=== PATIENT | female | born 1930 | race Caucasian/White ===

== ENCOUNTER 2017-03-18 17:26 | Emergency (ER) | payer MEDICARE, OTHER ==
[2017-03-18 18:55] LABS: #Eosinphils 0.1 thou/uL (0.0-0.7); #Lymphocytes 2.9 thou/uL (1.20-3.40); #Monocytes 0.7 thou/uL (0.11-0.59); #Neutrophils 3.6 thou/uL (1.40-6.50); %Basophils 0.4 % (0.0-1.0); %Monocytes 9.4 % (0.0-10.0); Hematocrit 41.1 % (36.0-47.0); Mean Platelet Volume 7.4 fL (7.4-10.4); Red Blood Cell (RBC) Count 4.34 mill/uL (4.20-5.40); White Blood Cell (WBC) Count 7.4 thou/uL (4.8-10.8)
[2017-03-18 18:59] LABS: PTT 36.2 SEC (22.9-36.1); Prothrombin Time 13.7 SEC (12.0-14.7)
--- NOTE | 2017-03-18 19:07 | CT ---
CT BRAIN WITHOUT CONTRAST: Date: 03/18/17 HISTORY: Headache. FINDINGS: Comparison made with exam of 02/15/13. Changes of mild cortical atrophy and chronic small vessel ischemic disease are again seen. The ventr icular size is stable and the basilar cisterns are patent. No evidence of acute infarct, hemorrhage, midline shift, or abnormal extra-axial fluid collections are seen. The bony calvarium is intact. Th e visualized paranasal sinuses and mastoid air cells are well aerated. IMPRESSION: No CT evidence of acute intracranial process. POS: [facility]
[2017-03-18 19:17] LABS: ALT (SGPT) 22 U/L (8-55); AST (SGOT) 19 U/L (5-34); Alkaline Phosphatase 63 U/L (40-150); Anion Gap 14 mmol/L (10-20); BUN (Urea Nitrogen) 26 mg/dL (9.8-20.1); Bilirubin, Total 0.4 mg/dL (0.2-1.2); Calc. Creatinine Clearance 0 mL/min (70-130); Calcium 9.8 mg/dL (7.8-10.44); Carbon Dioxide 27 mmol/L (23-31); Chloride 99 mmol/L (98-107); Estimated GFR-MDRD 33; Globulin 3.7 g/dL (2.4-3.5); Protein, Total 8.1 g/dL (6.0-8.3)
== END 2017-03-18 22:19 | disposition home or self-care (01) ==
LOC: ERS 17:26
DX: R51 Headache (principal); E78.5 Hyperlipidemia, unspecified; I12.9 Hypertensive chronic kidney disease with stage 1 through stage 4 chronic kidney disease, or unspecified chronic kidney disease; N18.9 Chronic kidney disease, unspecified; I25.10 Atherosclerotic heart disease of native coronary artery without angina pectoris; Z87.891 Personal history of nicotine dependence
CPT/HCPCS: 36415; 70450; 80053; 85025; 85610; 85652; 85730; 86140

== ENCOUNTER 2017-12-18 20:43 | Observation (INO) | payer MEDICARE, OTHER ==
--- NOTE | 2017-12-18 21:39 | RAD ---
TWO VIEW CHEST: 12/18/17 HISTORY: Chest pain. Lung sepulveda appear clear. Heart and mediastinum unremarkable. vascular markings are normal. IMPRESSION: Unremarkable chest. POS: [facility]
[2017-12-18 21:55] LABS: #Eosinphils 0.1 thou/uL (0.0-0.7); #Lymphocytes 2.8 thou/uL (1.20-3.40); #Monocytes 0.7 thou/uL (0.11-0.59); #Neutrophils 3.9 thou/uL (1.40-6.50); %Basophils 0.5 % (0.0-1.0); %Eosinophils 1.8 % (0.0-10.0); %Lymphocytes 36.7 % (21.0-51.0); %Monocytes 9.4 % (0.0-10.0); %Neutrophils 51.6 % (42.0-75.0); Hemoglobin 13.4 g/dL (12.0-16.0); Mean Corpuscular HGB CONC 34.7 g/dL (32.0-36.0); Mean Corpuscular Hemoglobin 31.5 pg (27.0-31.0); Mean Corpuscular Volume 90.8 fL (78.0-98.0); Mean Platelet Volume 7.2 fL (7.4-10.4); Platelet Count 201 thou/uL (130-400); Red Blood Cell (RBC) Count 4.24 mill/uL (4.20-5.40); White Blood Cell (WBC) Count 7.5 thou/uL (4.8-10.8)
[2017-12-18 21:56] LABS: CKMB 2.7 ng/mL (0-6.6); Troponin I Less than 0.010 ng/mL (< 0.028)
[2017-12-18 22:04] LABS: ALT (SGPT) 20 U/L (8-55); AST (SGOT) 35 U/L (5-34); Albumin 4.4 g/dL (3.4-4.8); Alkaline Phosphatase 50 U/L (40-150); Anion Gap 19 mmol/L (10-20); BUN (Urea Nitrogen) 26 mg/dL (9.8-20.1); Bilirubin, Total 0.4 mg/dL (0.2-1.2); CK (CPK) 125 U/L (29-168); Calc. Creatinine Clearance 0 mL/min (70-130); Calcium 9.4 mg/dL (7.8-10.44); Carbon Dioxide 23 mmol/L (23-31); Chloride 98 mmol/L (98-107); Estimated GFR-MDRD 33; Globulin 3.5 g/dL (2.4-3.5); Glucose 87 mg/dL (83-110); Potassium 5.5 mmol/L (3.5-5.1); Protein, Total 7.9 g/dL (6.0-8.3); Sodium 134 mmol/L (136-145)
[2017-12-19] MEDS ORDERED: Nitroglycerin 0.4 MG TAB (25 Tab Bottle) SL PRN (01:06)
[2017-12-19 01:14] LABS: Troponin I 0.011 ng/mL (< 0.028)
[2017-12-19 01:41] VITALS: BMI 30.2
[2017-12-19] MEDS ORDERED: Acetaminophen 325 MG TAB PO PRN (02:39)
[2017-12-19] MEDS ORDERED: Ondansetron HCl/PF 4 MG/2 ML Vial IVP PRN (02:39)
[2017-12-19 03:23] LABS: #Eosinphils 0.1 thou/uL (0.0-0.7); #Lymphocytes 2.8 thou/uL (1.20-3.40); #Monocytes 0.6 thou/uL (0.11-0.59); #Neutrophils 3.2 thou/uL (1.40-6.50); %Basophils 0.2 % (0.0-1.0); %Eosinophils 2.1 % (0.0-10.0); %Lymphocytes 41.7 % (21.0-51.0); %Monocytes 9.2 % (0.0-10.0); %Neutrophils 46.8 % (42.0-75.0); Hemoglobin 12.1 g/dL (12.0-16.0); Mean Corpuscular Hemoglobin 31.1 pg (27.0-31.0); Mean Corpuscular Volume 91.3 fL (78.0-98.0); Mean Platelet Volume 7.9 fL (7.4-10.4); Platelet Count 181 thou/uL (130-400); Red Blood Cell (RBC) Count 3.89 mill/uL (4.20-5.40); White Blood Cell (WBC) Count 6.8 thou/uL (4.8-10.8)
[2017-12-19 03:41] LABS: Anion Gap 13 mmol/L (10-20); BUN (Urea Nitrogen) 22 mg/dL (9.8-20.1); Calc. Creatinine Clearance 39 mL/min (70-130); Calcium 9.2 mg/dL (7.8-10.44); Carbon Dioxide 25 mmol/L (23-31); Chloride 103 mmol/L (98-107); Estimated GFR-MDRD 38; Glucose 135 mg/dL (83-110); Potassium 3.9 mmol/L (3.5-5.1); Sodium 137 mmol/L (136-145)
[2017-12-19] MEDS ORDERED: Aspirin 325 MG TAB PO SCH (09:00)
[2017-12-19] MEDS ORDERED: Enoxaparin Sodium 30 MG/0.3 ML SYRINGE SC SCH (09:00)
[2017-12-19] MEDS ORDERED: ADENOSINE 60 MG/20 ML VIAL ONE (10:40)
[2017-12-19 13:46] VITALS: TEMP 97.6
--- NOTE | 2017-12-19 15:31 | NM ---
MYOCARDIAL PERFUSION EVALUATION: INDICATION: Chest pain. RADIOPHARMACEUTICAL: 31.6 mCi Technetium 99m sestamibi IV with stress and 10.0 mCi Technetium 99m sestamibi IV with rest. FINDINGS: When comparing the rest and stress images, no reversible myocardial perfusion defect is evident. Wal l motion and thickening was within normal limits on the gated images. The estimated LVEF is 80%. IMPRESSION: No definite scintigraphic evidence of reversible myocardial ischemia. POS: [facility]
[2017-12-19 15:58] VITALS: BP 144/64
[2017-12-19] MEDS ORDERED: Clopidogrel Bisulfate 300 MG TAB PO SCH (17:45)
--- NOTE | 2017-12-19 20:17 | PRG ---
DATE OF SERVICE: 12/19/2017 PRIMARY KILN DOOR REPAIRER: Dr. Weaver. SUBJECTIVE: Ms. Orta is an 87-year-old woman, who presented with left upper chest pain. She ini tially said that she had had bypass surgery, but there does not appear to be any evidence that she anderson s had bypass surgery. She may have had abdominal aortic surgery many years ago. TECHNIQUE: The patient was brought here. Her stress test showed no ischemia and she is pain free. PHYSICAL EXAMINATION: VITAL SIGNS: Blood pressure 147/65, pulse 70, regular. LUNGS: Clear. CARDIAC: Normal S1, normal S2. ABDOMEN: Soft, nontender. EXTREMITIES: There is no edema. LABORATORY DATA: All the cardiac enzymes were normal. Creatinine is 1.3. Potassium is 3.9, it was 5.5 on admission. ASSESSMENT: 1. Chest pain. 2. Negative stress test. PLAN: 1. She will be released home to follow up with Dr. Weaver. 2. Plavix for 1 month only. She was given 300 mg today, then 75 mg a day. 3. If she has recurrent pain, she should be reevaluated. She will follow up closely with Dr. Alda orozco as an outpatient.
--- NOTE | 2017-12-20 00:42 | SS ---
PRIMARY CARE PROVIDER: Dr. William Delaney. DATE OF ADMISSION: 12/19/2017 DATE OF DISCHARGE: 12/19/2017 CHIEF COMPLAINT: Chest pain. HISTORY OF PRESENT ILLNESS: Ms. Orta is a pleasant 87-year-old lady who was admitted to [facility] on observation status on 12/19/2017. She has a history of coronary artery disease. Around 9:00 a.m. yesterday, she developed left-sided c hest pain which was sharp, initially over the lower chest subsequent to her upper chest, not accompan ied by nausea, lightheadedness or shortness of breath. She took a nitroglycerin in the morning as we ll as in the afternoon without relief. Her nitroglycerin is reportedly 6 years old. She came to the emergency room because of ongoing chest pain. She describes it as on and off, but it was not associated with any aggravating or relieving factors. It resolved overnight. REVIEW OF SYSTEMS: All other systems reviewed and found to be negative. PAST MEDICAL HISTORY: Hypertension, renal artery stenosis, status post angioplasty, coronary artery disease, ischemic colitis. SOCIAL HISTORY: Patient denies tobacco use, alcohol use or recreational drug use. FAMILY HISTORY: Significant for heart disease and asthma in her father. ALLERGIES: ALOE VERA, BEE STING and FLEXERIL. CURRENT MEDICATIONS: Amlodipine 5 mg 2 times a day, aspirin 325 mg daily, atorvastatin 20 mg daily, Coreg 12.5 mg 2 times a day, lactobacilli 1 capsule daily, lisinopril/hydrochlorothiazide 20/25 mg da hodan, omeprazole 20 mg daily, venlafaxine 150 mg daily. PHYSICAL EXAMINATION: GENERAL: On examination, Ms. Orta was awake and alert, not in acute distress. VITAL SIGNS: Blood pressure is 128/60, pulse 66, respiratory rate 16 and oxygen saturation 91% on ro om air. She is afebrile. EYES: No scleral icterus. No conjunctival pallor. ENT: Moist mucosal membranes, no oropharyngeal erythema or exudates. NECK: Supple, nontender. Trachea is midline. RESPIRATORY: Accessory muscles of breathing are not active. Chest wall movements are symmetric bila terally. LUNGS: Clear to auscultation without wheeze, rhonchi or crepitations. CARDIOVASCULAR: S1 and S2 are heard, regular. Peripheral pulses palpable. No carotid bruit, no per icardial rub. ABDOMEN: Soft, nontender, bowel sounds are heard, no hepatomegaly. No splenomegaly. NEUROLOGIC: Cranial nerves II-XII intact. Deep tendon reflexes 2+. MUSCULOSKELETAL: Power is 5/5 in all 4 extremities. LYMPHATIC: No cervical lymphadenopathy. SKIN: No rashes or subcutaneous nodules. PSYCHIATRIC: Normal mood, normal affect, patient is oriented to person, place, and time. LABORATORY DATA AND IMAGING DATA: Ms. Orta' labs and investigations were reviewed. I reviewed h er electrocardiogram, which shows normal sinus rhythm, no ST changes to suggest an acute coronary syn drome. I also reviewed her chest x-ray, which does not show any pulmonary infiltrates. She has norm al white count, normal hemoglobin, normal platelet count, hyponatremia at the time of admission, whic h resolved subsequently, hyperkalemia at the time of admission which resolved subsequently, elevated blood urea nitrogen of 22, elevated creatinine of 1.31, her creatinine in the past was 1.51 on 2016, mildly elevated AST, otherwise normal liver profile and negative troponin I x3. ASSESSMENT AND PLAN/HOSPITAL COURSE: Ms. Orta is a pleasant 87-year-old lady who was admitted to [facility] on observation status on 12/19/2017. Her problem list includes: 1. Chest pain: She presented to the emergency room with chest pain. She was monitored on telemetry . She was seen by Cardiology Service. She underwent nuclear stress test on 12/19/2017, which showed left ventricular ejection fraction of 80% and no definite scintigraphic evidence of reversible myoca rdial ischemia. Plavix has been added to her medications, 75 mg daily after a loading dose of 300 mg given in the hospital. She is also receiving a prescription for nitroglycerin. She has been advise d to take Plavix for 1 month by Cardiology Service. 2. Chronic kidney disease: Appears to be stable. 3. Hypertension: No change was made to her preadmission medications as dictated on this note. 4. Dyslipidemia: Continue statin. Many thanks for allowing me to participate in your patient's care. Please feel free to contact me wi th any questions or concerns. DISCHARGE DESTINATION: Home. TOTAL AMOUNT OF TIME SPENT COORDINATING THIS DISCHARGE: 33 minutes.
[2017-12-20] MEDS ORDERED: Clopidogrel Bisulfate 75 MG TAB PO SCH (09:00)
== END 2017-12-19 19:27 | disposition home or self-care (01) ==
LOC: ERS 20:43 → 2SW 23:45
PROVIDERS: ADMIT Hospitalist; ATTEND Hospitalist
DX: R07.9 Chest pain, unspecified (principal); I25.10 Atherosclerotic heart disease of native coronary artery without angina pectoris; I12.9 Hypertensive chronic kidney disease with stage 1 through stage 4 chronic kidney disease, or unspecified chronic kidney disease; N18.9 Chronic kidney disease, unspecified; Z88.8 Allergy status to other drugs, medicaments and biological substances; Z91.030 Bee allergy status; Z91.048 Other nonmedicinal substance allergy status; Z79.82 Long term (current) use of aspirin; Z79.899 Other long term (current) drug therapy
CPT/HCPCS: 71046; 78452; 80048; 80053; 82550; 82553; 84484 ×3; 85025 ×2; 93005; 93017; 96372; 99285; A9500; G0378; 36415; 96360; J0153; J1650

== ENCOUNTER 2018-06-03 10:00 | Outpatient (CLI) | payer MEDICARE, OTHER ==
--- NOTE | 2018-06-03 16:15 | CT ---
CT ANGIOGRAM ABDOMEN: CT ANGIOGRAM PELVIS: CT ANGIOGRAM RUNOFF TO THE FEET: HISTORY: Z98.890, abdominal aortic aneurysm repair. I10, hypertension. COMPARISON: CT abdomen and pelvis from 08/10/2016. FINDINGS: The lung bases are clear. No pericardial effusion. The spleen is unremarkable. The pancreas is unremarkable. The liver demonstrates a hypodensity in h epatic segment 5, which is similar to the 2017 examination. There is cholelithiasis. Moderate diverticular disease of the sigmoid colon without active current inflammation. There is abnormal narrowing of the L4-L5 disk space. There is severe degenerative facet arthropathy at the L3-L4, L4-L5, and L5-S1, with 2 mm of L3 over L4 anterolisthesis. There is aortobiiliac stent graft, which is patent. The [place] aorta is occluded. The left renal ar li has approximately 50% ostial narrowing. The right renal artery emanates from the stent graft an d is patent to the level of the renal arterial stent, in which there is slow flow after the stent. There is a mass of the posterior cortex interpolar right kidney, measuring 47 Hounsfield units, previ ously 16 Hounsfield units on the noncontrast study, likely a proteinaceous cyst. There is multifocal scarring of the right kidney. Multiple vyt-dvxyh-vg-characterize hypodensities are present of the r ight kidney. There is an exophytic mass, interpolar, right kidney, at the anterior cortex, which has similar Hounsfield units to the 2017 noncontrast study. The [place]ath common iliac arteries are occluded. After the stent graft, the arteries are patent. RIGHT SIDE: The common femoral artery is patent. The femoral artery is patent. The deep femoral artery is paten t. The popliteal artery is patent. The proximal trifurcation is patent. No significant contrast is seen within the distal trifurcation, likely due to the phase of contrast, as this is symmetric to th e left side. The left common femoral artery, common iliac artery, femoral artery, deep femoral artery, and poplite al arteries are patent. IMPRESSION: 1. Patent aortobiiliac stent graft with occluded klamath distal aorta. There is approximately 50% na rrowing of the right renal artery, at the level of the right renal arterial stent. 2. Multiple right-sided renal masses, which appear similar in attenuation to the 2017 examination, w hich may be a combination of proteinaceous/hemorrhagic cysts. 3. No acute inflammatory process in the abdomen or pelvis. 4. Patent vasculature of the lower extremities bilaterally, to the level of the distal trifurcation, for which there is no significant contrast within the vasculature, from the level of the ankle and b elow. Given its symmetry, it is likely due to the phase of contrast rather than occlusions. POS: [facility]
[2018-06-03] MEDS ORDERED: ISOVUE-370 76%-LOCM 1 ML ONE (17:01)
== END 2018-06-03 10:01 | disposition home or self-care (01) ==
LOC: BICCT 10:00
PROVIDERS: ATTEND Internal Medicine Cardiovascular Disease
DX: I10 Essential (primary) hypertension (principal); I74.09 Other arterial embolism and thrombosis of abdominal aorta; I70.1 Atherosclerosis of renal artery; N28.89 Other specified disorders of kidney and ureter; Z86.79 Personal history of other diseases of the circulatory system; Z95.828 Presence of other vascular implants and grafts
CPT/HCPCS: 75635; 82565

== ENCOUNTER 2019-04-23 12:23 | Emergency (ER) | payer MEDICARE, OTHER ==
[2019-04-23 13:25] LABS: Bilirubin Negative (Negative); Blood, Urine Small (Negative); Clarity Clear (Clear); Glucose, Urine (Dipstick) Negative (Negative); Leukocyte Trace (Negative); Nitrite Negative (Negative); Protein, Urine (Dipstick) Trace mg/dL (Neg-Trace); Urobilinogen 0.2 mg/dL (Less than 2)
[2019-04-23 13:28] LABS: RBC/HPF 0-3 HPF (0-3); Squamous Epithelial 0-3 HPF (0-3); WBC/HPF 0-3 HPF (0-3)
[2019-04-23 13:30] LABS: Bacteria/HPF 1+ HPF (None Seen)
[2019-04-23 13:48] LABS: Eosinophils 1 % (0-10); Hemoglobin 14.9 g/dL (12.0-16.0); Lymphocytes 12 % (21-51); MDiff Complete? YES; Mean Corpuscular HGB CONC 32.9 g/dL (32.0-36.0); Mean Corpuscular Hemoglobin 29.7 pg (27.0-31.0); Mean Corpuscular Volume 90.3 fL (78.0-98.0); Mean Platelet Volume 8.6 fL (7.4-10.4); Monocytes 4 % (0-10); Neutrophil 80 % (42-75); Platelet Count 221 thou/uL (130-400); Platelet Morphology Comment Appears Adequate; RBC Distribution Width 12.5 % (11.5-14.5); Reactive Lymphocytes 3 % (0-10); Red Blood Cell (RBC) Count 5.03 mill/uL (4.20-5.40); White Blood Cell (WBC) Count 8.3 thou/uL (4.8-10.8)
[2019-04-23 13:58] LABS: ALT (SGPT) 27 U/L (8-55); AST (SGOT) 34 U/L (5-34); Albumin 4.7 g/dL (3.4-4.8); Alkaline Phosphatase 59 U/L (40-110); Anion Gap 24 mmol/L (10-20); BUN (Urea Nitrogen) 31 mg/dL (9.8-20.1); Bilirubin, Total 0.4 mg/dL (0.2-1.2); Calc. Creatinine Clearance 0 mL/min (70-130); Calcium 10.1 mg/dL (7.8-10.44); Carbon Dioxide 21 mmol/L (23-31); Chloride 91 mmol/L (98-107); Estimated GFR-MDRD 41; Globulin 3.3 g/dL (2.4-3.5); Glucose 95 mg/dL (83-110); Lipase 11 U/L (8-78); Potassium 4.8 mmol/L (3.5-5.1); Sodium 131 mmol/L (136-145)
--- NOTE | 2019-04-23 14:43 | CT ---
CT abdomen and pelvis: 04/23/2019 HISTORY: Abdominal pain COMPARISON: 08/10/2016 TECHNIQUE: Axial CT imaging at 5 mm intervals from vertex through skull base with IV contrast. Ramirez l and sagittal reformatted imaging obtained. FINDINGS: The visualized lung bases are unremarkable with no free intraperitoneal air or fluid seen. Liver, gallbladder, spleen, pancreas, and adrenal glands demonstrate no acute findings. There is an i nferior right hepatic cyst measuring 2 cm. Multiple hypodense lesions emanating from both kidneys. Tiny hypodensities within the left kidney are too small to characterize. There is a lesion within the medial aspect of the right kidney demonstrating Hounsfield units of 45-50. This is stable when compared to a CT of the abdomen and pelv is performed 08/10/2016 suggesting a hemorrhagic or complex cyst. A similar hyperdense exophytic lesion emanating from the anterior aspect of the right renal midpole, stable as well. There is extensive diverticulosis of the descending colon and sigmoid colon with no evidence for dive rticulitis. No evidence for bowel inflammatory change or bowel obstruction. The appendix appears normal. Extensive atherosclerotic calcification of the abdominal aorta and its branches. The patient appears status post surgical correction of the infrarenal abdominal aorta. No worrisome lytic or blastic bone lesions. No lymphadenopathy in the abdomen or pelvis. IMPRESSION: Numerous incidental findings as detailed above. No acute findings are seen within the abd omen/pelvis.
== END 2019-04-23 15:53 | disposition home or self-care (01) ==
LOC: SCSER 12:23
DX: N17.9 Acute kidney failure, unspecified (principal); E87.1 Hypo-osmolality and hyponatremia; R10.9 Unspecified abdominal pain; I12.9 Hypertensive chronic kidney disease with stage 1 through stage 4 chronic kidney disease, or unspecified chronic kidney disease; N18.9 Chronic kidney disease, unspecified; E78.5 Hyperlipidemia, unspecified; E78.00 Pure hypercholesterolemia, unspecified; I25.10 Atherosclerotic heart disease of native coronary artery without angina pectoris; Z87.891 Personal history of nicotine dependence
CPT/HCPCS: 74177; 80053; 81003; 81015; 83605; 83690; 85025; 87086

== ENCOUNTER 2019-05-07 09:21 | Observation (INO) | payer MEDICARE, OTHER ==
--- NOTE | 2019-05-07 09:52 | RAD ---
EXAM: Single view of the chest HISTORY: Dyspnea COMPARISON: 09/23/2016 FINDINGS: Single view of the chest shows a normal sized cardiomediastinal silhouette. There is no agueda dence of consolidation, mass, or pleural effusion. The bones are unremarkable. IMPRESSION: No evidence of acute cardiopulmonary disease
--- NOTE | 2019-05-07 10:13 | CT ---
CT Brain WO Con HISTORY: Altered mental status. COMPARISON: 03/18/2017 study FINDINGS: There is mild ventricular and sulcal prominence with decreased attenuation to the periventr icular white matter. There are no signs of intracerebral hemorrhage or extra-axial fluid collections. The mastoid air cells and visualized sinuses are clear. IMPRESSION: No acute intracranial abnormalities.
[2019-05-07 11:15] LABS: #Eosinphils 0.1 thou/uL (0.0-0.7); #Lymphocytes 1.7 thou/uL (1.20-3.40); #Monocytes 0.6 thou/uL (0.11-0.59); #Neutrophils 4.6 thou/uL (1.40-6.50); %Basophils 0.4 % (0.0-1.0); %Eosinophils 1.2 % (0.0-10.0); %Lymphocytes 24.4 % (21.0-51.0); %Monocytes 8.8 % (0.0-10.0); %Neutrophils 65.3 % (42.0-75.0); Hemoglobin 13.8 g/dL (12.0-16.0); Mean Corpuscular HGB CONC 34.1 g/dL (32.0-36.0); Mean Corpuscular Hemoglobin 30.8 pg (27.0-31.0); Mean Corpuscular Volume 90.5 fL (78.0-98.0); Mean Platelet Volume 8.5 fL (7.4-10.4); Platelet Count 144 thou/uL (130-400); RBC Distribution Width 12.7 % (11.5-14.5); Red Blood Cell (RBC) Count 4.49 mill/uL (4.20-5.40)
[2019-05-07 11:29] LABS: PTT 36.6 SEC (22.9-36.1)
[2019-05-07 11:30] LABS: Acetaminophen Less than 6.0 mcg/mL (10.0-30.0); Alcohol Less than 10 mg/dL (Less than 10); CK (CPK) 141 U/L (29-168); Salicylate Less than 8.0 mg/dL (15.0-30.0)
[2019-05-07 11:32] LABS: ALT (SGPT) 22 U/L (8-55); AST (SGOT) 28 U/L (5-34); Albumin 4.3 g/dL (3.4-4.8); Alkaline Phosphatase 56 U/L (40-110); Anion Gap 16 mmol/L (10-20); BUN (Urea Nitrogen) 27 mg/dL (9.8-20.1); Bilirubin, Total 0.5 mg/dL (0.2-1.2); Calc. Creatinine Clearance 0 mL/min (70-130); Carbon Dioxide 24 mmol/L (23-31); Chloride 88 mmol/L (98-107); Estimated GFR-MDRD 43; Globulin 2.8 g/dL (2.4-3.5); Glucose 77 mg/dL (83-110); Lipase 7 U/L (8-78); Potassium 4.1 mmol/L (3.5-5.1); Protein, Total 7.1 g/dL (6.0-8.3); Sodium 124 mmol/L (136-145)
[2019-05-07 11:48] LABS: Bilirubin Negative (Negative); Blood, Urine Negative (Negative); Clarity Clear (Clear); Glucose, Urine (Dipstick) Normal (Negative); Leukocyte Negative Leu/uL (Negative); Nitrite Negative (Negative); Protein, Urine (Dipstick) Negative (Neg-Trace); Urobilinogen Normal mg/dL (Less than 2)
[2019-05-07] MEDS ORDERED: Aspirin Chewable 81 MG TAB ONE (11:55)
[2019-05-07 11:59] LABS: Amphetamine Not Detected (NotDetected); Barbiturates Screen Not Detected (NotDetected); Benzodiazepine Screen Not Detected (NotDetected); Cocaine Metabolite Screen Not Detected (NotDetected); Medtox Control Line Valid? VALID (VALID); Medtox Reader # READER 1; Methadone Not Detected (NotDetected); Methamphetamine Not Detected (NotDetected); Opiate Screen Not Detected (NotDetected); Oxycodone Screen Not Detected (NotDetected); Phencyclidine (PCP) Not Detected (NotDetected); THC/Cannabinoid Screen Not Detected (NotDetected); Tricyclic Screen Not Detected (NotDetected)
[2019-05-07 12:35] LABS: Magnesium 1.2 mg/dL (1.6-2.6); Phosphorus 2.8 mg/dL (2.3-4.7)
[2019-05-07] MEDS ORDERED: Magnesium Sulfate 4 GM in Sodium Chloride 0.9% 250 ML 250 ML IVPB SCH (13:15)
[2019-05-07 14:26] LABS: Troponin I 0.014 ng/mL (< 0.028)
[2019-05-07 15:51] VITALS: BMI 29.5
[2019-05-07] MEDS ORDERED: Nitroglycerin 0.4 MG TAB (25 Tab Bottle) PO PRN (17:14)
[2019-05-07] MEDS ORDERED: Dextrose 5 % And 0.9 % NaCl 1,000 ML IV SCH (17:15)
[2019-05-07] MEDS ORDERED: Ondansetron ODT 4 MG TAB PO PRN (17:16)
[2019-05-07] MEDS ORDERED: Ondansetron PF 4 MG/2 ML Vial IVP PRN (17:16)
[2019-05-07] MEDS ORDERED: Calcium Carbonate 500 MG ChewTAB PO PRN (17:16)
[2019-05-07] MEDS ORDERED: Senokot S 8.6-50 MG TAB PO PRN (17:16)
[2019-05-07] MEDS ORDERED: Acetaminophen 325 MG TAB PO PRN (17:16)
[2019-05-07] MEDS ORDERED: Labetalol HCl 100 MG/20 ML VIAL SLOW IVP PRN ×2 (17:18→17:59)
--- NOTE | 2019-05-07 18:27 | HP ---
PRIMARY CARE PHYSICIAN: Dr. William Delaney. PRIMARY SOUS CHEF KITCHEN MANAGER: Dr. Weaver. CHIEF COMPLAINT: Near syncopal episode. HISTORY OF PRESENT ILLNESS: The patient is an 88-year-old female with coronary artery disease, hypertension, hyperlipidemia, and CVA in the past, presented to the emergency room with above complaints. History obtained from the patient. The patient currently lives at home with her . This morning around 5, she had an episode of confusion while she was making coffee. The called the EMS. The patient is unable to provide further details. reported that the patient lost consciousness when she was walking back to the bed from the kitchen. She was dizzy and cold per ER report. Per the patient's report, she had an episode of chest discomfort that was pressure-like precordial that lasted for 5 minutes last night. She denies any nausea, vomiting, diaphoresis, weakness, numbness of any of her extremities, double vision or blurring of vision. No seizure like activity, tongue biting, or urinary or bladder bowel incontinence reported. In the emergency room, initial vital signs showed temperature 97.5, respirations of 16, pulse rate of 61, blood pressure of 154/66 with O2 saturation 95% on room air. She received aspirin along with IV fluids in the emergency room. The patient has been on keto diet over the last 2 weeks. Her mentation has somewhat improved since ER arrival. PAST MEDICAL HISTORY: 1. Coronary artery disease. 2. Hypertension. 3. Hyperlipidemia. 4. History of 30-pack year smoking history. She quit in 1991. 5. Peripheral vascular disease, status post aortobifemoral graft. 6. Prediabetes. 7. Secondary hyperparathyroidism. 8. Renal artery stenosis status post stent placement. 9. History of abdominal aortic aneurysm status post repair. 10. Chronic low back pain. 11. Vitamin B12 deficiency. 12. History of C diff colitis. 13. History of benign positional vertigo. 14. Anxiety. PAST SURGICAL HISTORY: 1. Renal artery stent placement. 2. Aortobifemoral graft in . 3. Hysterectomy. 4. Abdominal aortic aneurysm repair. 5. Colonoscopy in 2008. 6. Eye surgery. ALLERGIES: THE PATIENT IS ALLERGIC TO; 1. FLEXERIL. 2. LEVAQUIN. MEDICATIONS: Current home medications; 1. Amlodipine 5 mg at night and 2.5 mg in the morning. 2. Aspirin 325 mg daily. 3. Lipitor 40 mg daily. 4. Carvedilol 12.5 mg b.i.d. 5. Lisinopril-hydrochlorothiazide 20/25 daily. 6. Sublingual nitroglycerin as needed. 7. Omeprazole 20 mg daily. 8. Effexor 75 mg daily. SOCIAL HISTORY: The patient denies current smoking. She is retired. She is full code, makes her own decision with the help of her . FAMILY HISTORY: Heart disease runs in her family. REVIEW OF SYSTEMS: All other review of systems reviewed and were found negative. PHYSICAL EXAMINATION: VITAL SIGNS: As discussed above. GENERAL: An 88-year-old female, in no apparent distress. HEENT: Head, atraumatic and normocephalic. Sclerae anicteric. Moist mucous membranes. No oral lesion. NECK: Supple. No JVD appreciated. No carotid bruit. LUNGS: Clear to auscultation bilaterally. No wheezing, rales, or rhonchi. HEART: S1 and S2 present. Regular rate and rhythm. No rubs or gallops. ABDOMEN: Soft, nontender. Bowel sounds present. EXTREMITIES: No edema or calf tenderness. NEUROLOGY: Grossly nonfocal. Moves all 4 extremities. Cranial nerves 2 through 12 are normal on examination. Power was 5/5 in all extremities. PSYCHIATRY: Alert, awake, and oriented x3. SKIN: Warm and dry. LYMPH NODES: No palpable lymph nodes in the neck. Peripheral vascular radial pulses palpable bilaterally. MUSCULOSKELETAL: No joint swelling or tenderness. LABORATORY FINDINGS: EKG by my review showed sinus rhythm with left axis deviation with left bundle-branch block. Troponins were indeterminate. Magnesium 1.2. Serum osmolality 276, sodium 124, creatinine 1.19, BUN of 27. BNP was 28.2. TSH was normal. Urine osmolality was 365. Urine ketones were 40. WBC and hemoglobin were normal. Influenza testing was negative. DIAGNOSTIC DATA: Chest x-ray by my review was negative for acute findings. CT scan of the brain was negative. Chest x-ray by my review was negative for infiltrate or edema. IMPRESSION: 1. Toxic metabolic encephalopathy, multifactorial. 2. Chest discomfort last night. 3. Hypotonic hyponatremia. 4. Hypomagnesemia. 5. Chronic kidney disease, stage 3 with dehydration. 6. Coronary artery disease. 7. Peripheral vascular disease, status post aortobifemoral grafting. 8. Hypertension. 9. Gastroesophageal reflux disease. 10. 39-srdy-eets smoking history. 11. History of renal artery stenosis status post stent placement. 12. Anxiety. 13. History of CVA. PLAN: The patient will be monitored on the telemetry unit. Echocardiogram will be obtained. Troponins have been negative. We will start her on IV hydration. We will recheck labs in a.m. Replace magnesium. Hyponatremia is probably secondary to poor oral intake. The patient has been on keto diet over the last 2 weeks. We will keep her n.p.o. past midnight. We will consult Cardiology. The patient states that she had a stress test approximately [address] Weaver's office, however, she is not exactly sure about this. We will resume amlodipine, Lipitor, carvedilol, and Effexor. Resume PPIs. We will check orthostatic vitals in a.m. Plan of care was discussed with the patient in detail. She stated understanding. Job ID: [id number]
[2019-05-07] MEDS: Carvedilol 6.25 MG TAB PO SCH (20:02)
[2019-05-07] MEDS: Heparin 5,000 UNITS/ML VIAL SC SCH (20:02)
[2019-05-07] MEDS ORDERED: Amlodipine 5 MG TAB PO SCH (21:00)
[2019-05-07] MEDS ORDERED: Atorvastatin Calcium 40 MG TAB PO SCH (21:00)
[2019-05-08 05:51] LABS: Anion Gap 14 mmol/L (10-20); BUN (Urea Nitrogen) 24 mg/dL (9.8-20.1); Calc. Creatinine Clearance 44 mL/min (70-130); Calcium 8.6 mg/dL (7.8-10.44); Carbon Dioxide 26 mmol/L (23-31); Chloride 98 mmol/L (98-107); Estimated GFR-MDRD 48; Glucose 116 mg/dL (83-110); Magnesium 2.4 mg/dL (1.6-2.6); Potassium 3.5 mmol/L (3.5-5.1); Sodium 134 mmol/L (136-145)
[2019-05-08] MEDS ORDERED: Aspirin 325 mg Enteric Coated Tablet PO SCH (09:00)
[2019-05-08] MEDS ORDERED: Amlodipine 5 MG TAB PO SCH (09:00)
[2019-05-08] MEDS ORDERED: Venlafaxine HCl XR 75 MG CAP PO SCH (09:00)
[2019-05-08] MEDS: Carvedilol 6.25 MG TAB PO SCH (09:10)
[2019-05-08] MEDS: Heparin 5,000 UNITS/ML VIAL SC SCH (09:11)
[2019-05-08 11:41] VITALS: BP 116/57; TEMP 98
--- NOTE | 2019-05-09 13:57 | DIS ---
DATE OF ADMISSION: 05/07/2019 DATE OF DISCHARGE: 05/08/2019 DISCHARGE DISPOSITION: Home. FOLLOWUP: Follow up with Dr. William Delaney in 3 days. DISCHARGE MEDICATION: 1. Lisinopril 10 mg daily. 2. Effexor 75 mg daily. 3. Omeprazole 20 mg daily. 4. Sublingual nitroglycerin as needed. 5. Carvedilol 12.5 mg b.i.d. 6. Lipitor 40 mg daily. 7. Aspirin 325 mg daily. 8. Amlodipine 2.5 mg in the morning and 5 mg at bedtime. INPATIENT CONSULTATION: None. BRIEF HOSPITAL COURSE: The patient is an 88-year-old female with coronary artery disease, hypertension, hyperlipidemia, and CVA in the past, presented to the hospital with a near syncopal episode along with confusion. The patient was monitored on the telemetry unit. She was found to have abnormal electrolytes. Her sodium was 124 with a magnesium of 1.2. After IV hydration, the sodium improved to 134. The magnesium improved to 2.4. Vitamin B12 was greater than 2000 and folic acid was 14.4. Please note that patient has started a keto diet over the last 2 weeks to lose weight. The patient will benefit from repeat labs next week. Dr. Weaver's office will set up an event monitor. Initial CT scan of the brain and chest x-ray were negative. Urinalysis was negative as well. She appears stable for discharge. Plan of care was discussed with the family and the patient in detail. They stated understanding. Fall precaution was emphasized. Please note that lisinopril/hydrochlorothiazide has been changed to lisinopril 10 mg daily due to hyponatremia. SIGNIFICANT LABS: Blood cultures negative. Influenza screen negative. WBC 7.0 with hemoglobin 13.8. Troponin negative. Urine drug screen negative. FINAL DIAGNOSES: 1. Near syncope, multifactorial. 2. Toxic metabolic encephalopathy, probably secondary to electrolyte abnormalities. 3. Chest discomfort the night prior to admission, resolved. Troponins were negative. Echocardiogram showed left ventricular ejection fraction of 50% to 55% with diastolic dysfunction, mild mitral regurgitation, mild tricuspid regurgitation. She was advised to follow up with Dr. Weaver. 4. Hypotonic hyponatremia secondary to poor oral intake. Please note that patient has started a keto diet over the last 2 weeks. 5. Hypomagnesemia, replaced. 6. Chronic kidney disease, stage 3. 7. Coronary artery disease. 8. Peripheral vascular disease, status post aortobifemoral grafting. 9. Hypertension. 10. Gastroesophageal reflux disease. 11. Thirty pack-year smoking history. 12. History of renal artery stenosis, status post stent placement. 13. Anxiety. 14. History of cerebrovascular accident. Job ID: [id number]
== END 2019-05-08 15:29 | disposition home or self-care (01) ==
LOC: ERS 09:21 → 2SW 14:51
PROVIDERS: ADMIT Internal Medicine; ATTEND Emergency Medicine
DX: R55 Syncope and collapse (principal); G92 Toxic encephalopathy; E87.1 Hypo-osmolality and hyponatremia; I12.9 Hypertensive chronic kidney disease with stage 1 through stage 4 chronic kidney disease, or unspecified chronic kidney disease; N18.3 Chronic kidney disease, stage 3 (moderate); I25.10 Atherosclerotic heart disease of native coronary artery without angina pectoris; I73.9 Peripheral vascular disease, unspecified; K21.9 Gastro-esophageal reflux disease without esophagitis; F41.9 Anxiety disorder, unspecified; I08.1 Rheumatic disorders of both mitral and tricuspid valves; Z79.82 Long term (current) use of aspirin; Z79.899 Other long term (current) drug therapy; Z86.73 Personal history of transient ischemic attack (TIA), and cerebral infarction without residual deficits; Z87.891 Personal history of nicotine dependence; Z88.8 Allergy status to other drugs, medicaments and biological substances; Z88.1 Allergy status to other antibiotic agents; Z91.030 Bee allergy status
CPT/HCPCS: 70450; 71045; 80048; 80306; 80307; 81003; 82140; 82550; 82607; 82746; 83605; 83690; 83735 ×2; 83880; 83930; 83935; 84100; 84484 ×2; 85610; 85730; 87040; 87804 ×2; 93005; 93306; 94760; 96361 ×3; 96365; 96372 ×2; 99285; G0378 ×2; 36415; 80053; 84443; 85025; 96360; J1644; J3475; J7050

== ENCOUNTER 2020-04-04 10:10 | Outpatient (CLI) | payer MEDICARE, OTHER ==
--- NOTE | 2020-04-04 13:58 | BD ---
BONE DENSITOMETRY USING DEXA: Date: 04/04/2020 HISTORY: Postmenopausal screening for osteoporosis. FINDINGS: Lumbar Spine: BMD (g/cm2) L1 1.005 T-Score: 0.1 L2 1.057 T-Score: 0.3 L3 1.103 T-Score: 0.2 L4 1.256 T-Score: 1.8 L1-L4 1.122 T-Score: 0.7 Femoral Neck: 0.575 T-Score: -2.5 Total Femur: 0.764 T-Score: -1.5 There has been interval improvement of 1.3% in the bone mineral density of the lumbar spine and a red uction of 7.9% in the bone mineral density of the proximal femur since 12/23/2015. IMPRESSION: Osteoporosis. POS: [facility]
== END 2020-04-04 10:11 | disposition home or self-care (01) ==
LOC: BICMAMMO 10:10
PROVIDERS: ATTEND Family Medicine
DX: Z13.820 Encounter for screening for osteoporosis (principal); Z78.0 Asymptomatic menopausal state; M81.0 Age-related osteoporosis without current pathological fracture
CPT/HCPCS: 77080

== ENCOUNTER 2020-10-05 10:00 | Inpatient (IN) | payer MEDICARE, OTHER ==
[2020-10-05] MEDS ORDERED: Magnesium 2 GM/50 ML BAG (IN WATER) ONE (10:13)
[2020-10-05] MEDS ORDERED: methylPREDNISolone Sod Succ/PF 125 MG/2 ML VIAL ONE (10:13)
[2020-10-05 11:01] LABS: #Eosinphils 0.2 thou/uL (0.0-0.7); #Lymphocytes 2.6 thou/uL (1.20-3.40); #Monocytes 1.4 thou/uL (0.11-0.59); #Neutrophils 11.5 thou/uL (1.40-6.50); %Basophils 0.2 % (0.0-1.0); %Eosinophils 1.1 % (0.0-10.0); %Lymphocytes 16.5 % (21.0-51.0); %Neutrophils 73.2 % (42.0-75.0); Hemoglobin 11.6 g/dL (12.0-16.0); Mean Corpuscular HGB CONC 33.9 g/dL (32.0-36.0); Mean Corpuscular Volume 94.5 fL (78.0-98.0); Mean Platelet Volume 8.2 fL (7.4-10.4); Platelet Count 206 thou/uL (130-400); RBC Distribution Width 12.4 % (11.5-14.5); Red Blood Cell (RBC) Count 3.64 mill/uL (4.20-5.40); White Blood Cell (WBC) Count 15.7 thou/uL (4.8-10.8)
[2020-10-05] MEDS ORDERED: Iopamidol 370 76% 100 ML VIAL ONE (11:12)
[2020-10-05] MEDS ORDERED: Iopamidol 370 76% 50 ML VIAL FS ONE (11:12)
[2020-10-05] MEDS ORDERED: cefTRIAXone\\ROCEPHIN 2 GM VIAL ONE (11:13)
[2020-10-05 11:20] LABS: Actual Bicarbonate (HCO3a) 25.3 mEq/L (22-28); Analyzer IN Cardio ER; Base Excess (BEa) -2.4 mEq/L (-2.0 to +3.0); CO2 Tension 55.8 mmHg (35.0-45.0); Calcium, Ionized (arterial) 1.21 mmol/L (1.12-1.30); Carboxyhemoglobin (COHb) 0.6 gm% (0.0-3.0); Hemoglobin (Hb) 13.6 g/dL (12.0-16.0); O2 Tension (PaO2), arterial 121.9 mmHg (> 60.0); Potassium - ABG Lab 3.82 mmol/L (3.70-5.30); pH, Arterial 7.27 (7.35-7.45)
[2020-10-05 11:21] LABS: Puncture Site RRA
[2020-10-05 11:28] LABS: ALT (SGPT) 16 U/L (8-55); AST (SGOT) 24 U/L (5-34); Albumin 3.6 g/dL (3.4-4.8); Alkaline Phosphatase 50 U/L (40-110); Anion Gap 16 mmol/L (10-20); BUN (Urea Nitrogen) 20 mg/dL (9.8-20.1); Bilirubin, Total 0.5 mg/dL (0.2-1.2); Calc. Creatinine Clearance 0 mL/min (70-130); Calcium 9.2 mg/dL (7.8-10.44); Carbon Dioxide 24 mmol/L (23-31); Chloride 100 mmol/L (98-107); Globulin 3.5 g/dL (2.4-3.5); Glucose 160 mg/dL (83-110); Magnesium 1.9 mg/dL (1.6-2.6); Potassium 3.8 mmol/L (3.5-5.1); Protein, Total 7.1 g/dL (5.8-8.1); Sodium 136 mmol/L (136-145)
[2020-10-05 11:41] LABS: SARS-CoV-2 NAA Rapid Test Not Detected (NotDetected)
[2020-10-05 12:07] LABS: CKMB 6.3 ng/mL (0-6.6)
[2020-10-05] MEDS ORDERED: Aspirin Chewable 81 MG TAB ONE ×2 (12:11→12:29)
[2020-10-05] MEDS ORDERED: Azithromycin 500 MG VIAL ONE (12:11)
[2020-10-05] MEDS ORDERED: Albuterol Sulfate 2.5 mg/3 ml Neb ONE (12:12)
[2020-10-05] MEDS ORDERED: Albuterol Sulfate 2.5 mg/0.5 ml Neb ONE (12:12)
[2020-10-05] MEDS ORDERED: Iopamidol-370 76% 500 ML 1 ML ONE (12:47)
[2020-10-05] MEDS ORDERED: Senokot S 8.6-50 MG TAB PO PRN (12:51)
[2020-10-05] MEDS ORDERED: HYDROcodone/Acetaminophen 5/325 mg Tablet PO PRN (12:51)
[2020-10-05] MEDS ORDERED: Enoxaparin Sodium 30 MG/0.3 ML SYRINGE ONE ×4 (12:53→18:35)
[2020-10-05] MEDS ORDERED: Enoxaparin Sodium 40 MG/0.4 ML SYRINGE ONE (12:53)
[2020-10-05] MEDS ORDERED: Furosemide 40 MG/4 ML VIAL SLOW IVP SCH (14:00)
[2020-10-05 14:12] LABS: Critical Call Chem Troponin I RESULT DECREASING; Troponin I 15.985 ng/mL (< 0.028)
[2020-10-05] MEDS ORDERED: Furosemide 40 MG/4 ML VIAL ONE (16:48)
[2020-10-05] MEDS ORDERED: HYDROcodone/Acetaminophen 5/325 mg Tablet ONE (16:48)
[2020-10-05] MEDS ORDERED: methylPREDNISolone Sod Succ 40 MG VIAL ONE (16:51)
[2020-10-05] MEDS: methylPREDNISolone Sod Succ 40 MG VIAL IVP SCH ×2 (17:16→21:59)
[2020-10-05 17:26] LABS: CKMB 8.5 ng/mL (0-6.6); Troponin I 14.693 ng/mL (< 0.028)
[2020-10-05] MEDS ORDERED: Rocuronium Bromide 10 MG/ML (10ML VIAL) ONE (17:40)
[2020-10-05] MEDS ORDERED: Ketamine 50 MG/ML (10ML VIAL) ONE (17:40)
[2020-10-05] MEDS ORDERED: Lidocaine 1% (PF) 30 ML VIAL ONE (17:48)
[2020-10-05] MEDS ORDERED: Nitroglycerin 100MG/250ML BOT 250 ML ONE (18:14)
[2020-10-05] MEDS ORDERED: Adenosine 6 MG/2 ML VIAL ONE (18:14)
[2020-10-05] MEDS ORDERED: Heparin 10,000 UNITS/ 10 ML VIAL ONE (18:14)
[2020-10-05] MEDS ORDERED: Verapamil 5 MG/2 ML VIAL ONE (18:14)
[2020-10-05] MEDS ORDERED: DOPamine 400 MG/D5W 250 ML 250 ML ONE (18:40)
[2020-10-05] MEDS ORDERED: Clopidogrel Bisulfate 300 MG TAB ONE (18:40)
[2020-10-05] MEDS ORDERED: Norepinephrine 4 MG/4 ML VIAL ONE (19:01)
[2020-10-05 19:43] LABS: Actual Bicarbonate (HCO3a) 21.6 mEq/L (22-28); Base Excess (BEa) -3.6 mEq/L (-2.0 to +3.0); CO2 Tension 39.3 mmHg (35.0-45.0); Calcium, Ionized (arterial) 1.04 mmol/L (1.12-1.30); Carboxyhemoglobin (COHb) 0.3 gm% (0.0-3.0); Hemoglobin (Hb) 12.6 g/dL (12.0-16.0); O2 Tension (PaO2), arterial 72.3 mmHg (> 60.0); Potassium - ABG Lab 3.51 mmol/L (3.70-5.30); Puncture Site Arterial Line; pH, Arterial 7.36 (7.35-7.45)
[2020-10-05 19:44] LABS: ALV-art Gradient 235.075 mmHg (0-20)
[2020-10-05] MEDS ORDERED: Fentanyl CADD 100 ML ONE (19:50)
[2020-10-05] MEDS: Sodium Chloride 0.9% 1,000 ML IV SCH (20:33)
[2020-10-05] MEDS: Fentanyl CADD 100 ML IV SCH (20:33)
[2020-10-05] MEDS ORDERED: Atorvastatin Calcium 40 MG TAB PO SCH (21:00)
[2020-10-05] MEDS: Famotidine/PF 20 mg/2ml Vial SLOW IVP SCH (21:49)
[2020-10-05] MEDS: Atorvastatin Calcium 40 MG TAB PO SCH (21:50)
[2020-10-05] MEDS ORDERED: DOPamine 400 MG/D5W 250 ML 250 ML IVPB PRN (22:17)
[2020-10-05] MEDS: Carvedilol 3.125 MG TAB PO SCH (22:44)
[2020-10-05] MEDS ORDERED: Enoxaparin Sodium 80 MG/0.8 ML SYRINGE SC SCH (23:00)
[2020-10-06] MEDS: methylPREDNISolone Sod Succ 40 MG VIAL IVP SCH ×4 (03:42→21:57)
[2020-10-06 04:44] LABS: #Basophils 0.1 thou/uL (0.0-0.2); #Lymphocytes 0.5 thou/uL (1.20-3.40); #Monocytes 0.4 thou/uL (0.11-0.59); #Neutrophils 8.6 thou/uL (1.40-6.50); %Basophils 0.8 % (0.0-1.0); %Lymphocytes 5.1 % (21.0-51.0); %Monocytes 3.7 % (0.0-10.0); %Neutrophils 90.3 % (42.0-75.0); Hemoglobin 11.1 g/dL (12.0-16.0); Mean Corpuscular Hemoglobin 28.8 pg (27.0-31.0); Mean Corpuscular Volume 93.1 fL (78.0-98.0); Mean Platelet Volume 8.3 fL (7.4-10.4); Platelet Count 255 thou/uL (130-400); RBC Distribution Width 12.3 % (11.5-14.5); Red Blood Cell (RBC) Count 3.87 mill/uL (4.20-5.40); White Blood Cell (WBC) Count 9.5 thou/uL (4.8-10.8)
[2020-10-06] MEDS: Sodium Chloride 0.9% 1,000 ML IV SCH ×2 (04:45→21:57)
[2020-10-06 04:50] LABS: ALT (SGPT) 14 U/L (8-55); AST (SGOT) 21 U/L (5-34); Albumin 3.3 g/dL (3.4-4.8); Alkaline Phosphatase 44 U/L (40-110); Anion Gap 14 mmol/L (10-20); BUN (Urea Nitrogen) 21 mg/dL (9.8-20.1); Bilirubin, Total 0.3 mg/dL (0.2-1.2); Calc. Creatinine Clearance 45 mL/min (70-130); Calcium 8.2 mg/dL (7.8-10.44); Carbon Dioxide 22 mmol/L (23-31); Chloride 104 mmol/L (98-107); Globulin 3.2 g/dL (2.4-3.5); Glucose 174 mg/dL (83-110); Potassium 3.3 mmol/L (3.5-5.1); Protein, Total 6.5 g/dL (5.8-8.1); Sodium 137 mmol/L (136-145)
[2020-10-06 05:12] LABS: CKMB 7.1 ng/mL (0-6.6); Troponin I 18.135 ng/mL (< 0.028)
[2020-10-06] MEDS ORDERED: Aspirin Chewable 81 MG TAB PO SCH (09:00)
[2020-10-06] MEDS ORDERED: Potassium Chloride 40 MEQ in Premix Bag 1 BAG IVPB PRN (09:02)
[2020-10-06] MEDS ORDERED: Magnesium 2 GM/50 ML 2 GM in Premix Bag 1 BAG IVPB PRN (09:08)
[2020-10-06 10:39] LABS: CKMB 7.1 ng/mL (0-6.6); Troponin I 18.495 ng/mL (< 0.028)
[2020-10-06] MEDS: cefTRIAXone\\ROCEPHIN 1 GM in Sodium Chloride 0.9% 100 ML IVPB SCH (12:07)
[2020-10-06] MEDS: Famotidine/PF 20 mg/2ml Vial SLOW IVP SCH ×2 (12:07→21:57)
[2020-10-06] MEDS: Aspirin Chewable 81 MG TAB PO SCH (12:08)
[2020-10-06] MEDS: Enoxaparin Sodium 80 MG/0.8 ML SYRINGE SC SCH ×2 (12:08→12:49)
[2020-10-06] MEDS: Carvedilol 3.125 MG TAB PO SCH ×2 (12:10→16:42)
[2020-10-06] MEDS: Azithromycin 500 MG in Sodium Chloride 0.9% 250 ML 250 ML IVPB SCH (13:49)
[2020-10-06] MEDS ORDERED: Fentanyl CADD 100 ML ONE (14:49)
[2020-10-06] MEDS: Fentanyl CADD 100 ML IV SCH (14:52)
[2020-10-06] MEDS ORDERED: Sodium Chloride 0.9% 500 ML IV SCH (18:00)
[2020-10-06] MEDS: Atorvastatin Calcium 40 MG TAB PO SCH (21:57)
[2020-10-06] MEDS: Famotidine 20 MG TAB PO SCH (21:59)
[2020-10-07 04:36] LABS: Hemoglobin 10.4 g/dL (12.0-16.0); Mean Corpuscular HGB CONC 32.9 g/dL (32.0-36.0); Mean Corpuscular Hemoglobin 30.6 pg (27.0-31.0); Mean Platelet Volume 7.8 fL (7.4-10.4); Platelet Count 254 thou/uL (130-400); RBC Distribution Width 12.5 % (11.5-14.5); Red Blood Cell (RBC) Count 3.39 mill/uL (4.20-5.40); White Blood Cell (WBC) Count 14.6 thou/uL (4.8-10.8)
[2020-10-07 04:41] LABS: Anion Gap 13 mmol/L (10-20); BUN (Urea Nitrogen) 27 mg/dL (9.8-20.1); Calc. Creatinine Clearance 48 mL/min (70-130); Calcium 7.9 mg/dL (7.8-10.44); Carbon Dioxide 21 mmol/L (23-31); Chloride 109 mmol/L (98-107); Glucose 160 mg/dL (83-110); Magnesium 1.8 mg/dL (1.6-2.6); Phosphorus 3.6 mg/dL (2.3-4.7); Potassium 3.7 mmol/L (3.5-5.1); Sodium 139 mmol/L (136-145)
[2020-10-07] MEDS: methylPREDNISolone Sod Succ 40 MG VIAL IVP SCH ×4 (04:47→22:37)
[2020-10-07] MEDS: Sodium Chloride 0.9% 1,000 ML IV SCH ×2 (04:49→13:00)
[2020-10-07 05:02] LABS: Band 2 % (5-11); Lymphocytes 2 % (21-51); MDiff Complete? YES; Monocytes 4 % (0-10); Neutrophil 92 % (42-75)
[2020-10-07 05:03] LABS: Critical Call Chem Troponin I RESULT DECREASING
[2020-10-07 05:21] LABS: CKMB 3.1 ng/mL (0-6.6)
[2020-10-07 07:41] LABS: Actual Bicarbonate (HCO3a) 20.8 mEq/L (22-28); Base Excess (BEa) -2.4 mEq/L (-2.0 to +3.0); Calcium, Ionized (arterial) 1.11 mmol/L (1.12-1.30); Hemoglobin (Hb) 11.3 g/dL (12.0-16.0); Potassium - ABG Lab 3.81 mmol/L (3.70-5.30); pH, Arterial 7.45 (7.35-7.45)
[2020-10-07 07:43] LABS: O2 Tension (PaO2), arterial 57.5 mmHg (> 60.0); Puncture Site LRA
[2020-10-07] MEDS: Carvedilol 3.125 MG TAB PO SCH (08:18)
[2020-10-07] MEDS ORDERED: Furosemide 20 MG/2 ML VIAL SLOW IVP SCH (08:30)
[2020-10-07] MEDS: Famotidine 20 MG TAB PO SCH ×2 (09:02→22:42)
[2020-10-07] MEDS: Potassium Chloride 20 MEQ in Premix Bag 1 BAG IVPB SCH ×2 (09:02→10:45)
[2020-10-07] MEDS: Famotidine/PF 20 mg/2ml Vial SLOW IVP SCH ×2 (09:02→22:38)
[2020-10-07] MEDS: Aspirin Chewable 81 MG TAB PO SCH (09:02)
[2020-10-07] MEDS: cefTRIAXone\\ROCEPHIN 1 GM in Sodium Chloride 0.9% 100 ML IVPB SCH (11:20)
[2020-10-07] MEDS: Azithromycin 500 MG in Sodium Chloride 0.9% 250 ML 250 ML IVPB SCH (13:02)
[2020-10-07] MEDS: Acetaminophen 325 MG TAB PO PRN (15:42)
[2020-10-07] MEDS ORDERED: Nitroglycerin 50 MG/250 ML BOT 250 ML IVPB PRN (16:39)
[2020-10-07] MEDS ORDERED: Diltiazem 125 MG in Sodium Chloride 0.9% 100 ML IVPB SCH (16:45)
[2020-10-07] MEDS ORDERED: Digoxin 0.5 MG/2 ML AMP SLOW IVP SCH ×2 (16:45→19:15)
[2020-10-07] MEDS ORDERED: Sodium Chloride 0.9% 1,000 ML IV SCH (17:30)
[2020-10-07 19:41] LABS: Base Excess (BEa) -14.5 mEq/L (-2.0 to +3.0); CO2 Tension 50.1 mmHg (35.0-45.0); Calcium, Ionized (arterial) 1.18 mmol/L (1.12-1.30); Carboxyhemoglobin (COHb) 0.1 gm% (0.0-3.0); Hemoglobin (Hb) 12.4 g/dL (12.0-16.0); O2 Tension (PaO2), arterial 73.6 mmHg (> 60.0); Potassium - ABG Lab 4.83 mmol/L (3.70-5.30)
[2020-10-07 19:42] LABS: ALV-art Gradient 362.875 mmHg (0-20); Puncture Site RRA; pH, Arterial 7.09 (7.35-7.45)
[2020-10-07] MEDS ORDERED: Midazolam HCl 2 mg/2 ml Vial ONE (20:09)
[2020-10-07] MEDS: Sodium Bicarb 50 MEQ/50 ML Abboject 8.4% SYRINGE ONE ×2 (20:10→20:12)
[2020-10-07] MEDS ORDERED: Vecuronium 10 MG VIAL ONE (20:20)
[2020-10-07] MEDS ORDERED: Ventilator Sedation Protocol 1 EACH FS SCH (20:24)
[2020-10-07] MEDS ORDERED: Midazolam HCl 2 mg/2 ml Vial IVP PRN (20:24)
[2020-10-07] MEDS ORDERED: Vecuronium 10 MG VIAL IV PRN (20:24)
[2020-10-07] MEDS ORDERED: Morphine 2 MG/ML VIAL SLOW IVP PRN (20:30)
[2020-10-07] MEDS ORDERED: Propofol 1,000 MG/100 ML VIAL IV PRN (20:30)
[2020-10-07] MEDS ORDERED: Fentanyl BOLUS 250 ML IVPB PRN (20:30)
[2020-10-07] MEDS ORDERED: DISCONTINUE PREVIOUS NARCOTIC PAIN MEDICATIONS AND BENZODIAZEPINES FS SCH (20:30)
[2020-10-07] MEDS ORDERED: Propofol BOLUS 1,000 MG/100 ML VIAL IV PRN (20:30)
[2020-10-07] MEDS ORDERED: Sodium Chloride 0.9% 500 ML IVPB SCH (20:45)
[2020-10-07] MEDS ORDERED: Sodium Bicarb 50 MEQ/50 ML Abboject 8.4% SYRINGE IVP SCH (20:45)
[2020-10-07 20:47] LABS: Actual Bicarbonate (HCO3a) 17.6 mEq/L (22-28); Base Excess (BEa) -5.7 mEq/L (-2.0 to +3.0); CO2 Tension 27.7 mmHg (35.0-45.0); Calcium, Ionized (arterial) 1.06 mmol/L (1.12-1.30); Carboxyhemoglobin (COHb) 0.3 gm% (0.0-3.0); O2 Tension (PaO2), arterial 64.3 mmHg (> 60.0); Potassium - ABG Lab 3.77 mmol/L (3.70-5.30); pH, Arterial 7.42 (7.35-7.45)
[2020-10-07 20:48] LABS: Puncture Site RRA
[2020-10-07 20:49] LABS: ALV-art Gradient 614.075 mmHg (0-20)
[2020-10-07] MEDS ORDERED: Fentanyl CADD 100 ML ONE (22:32)
[2020-10-07] MEDS: Atorvastatin Calcium 40 MG TAB PO SCH (22:38)
[2020-10-07] MEDS: Fentanyl CADD 100 ML IV SCH (22:48)
[2020-10-08] MEDS: Lorazepam 2 MG/ML VIAL SLOW IVP PRN ×2 (02:50→21:48)
[2020-10-08 04:38] LABS: #Basophils 0.1 thou/uL (0.0-0.2); #Eosinphils 0.2 thou/uL (0.0-0.7); #Lymphocytes 2.5 thou/uL (1.20-3.40); #Monocytes 0.5 thou/uL (0.11-0.59); #Neutrophils 5.9 thou/uL (1.40-6.50); %Basophils 0.8 % (0.0-1.0); %Eosinophils 1.7 % (0.0-10.0); %Lymphocytes 27.2 % (21.0-51.0); %Monocytes 5.9 % (0.0-10.0); %Neutrophils 64.4 % (42.0-75.0); Hemoglobin 9.8 g/dL (12.0-16.0); Mean Corpuscular HGB CONC 30.7 g/dL (32.0-36.0); Mean Corpuscular Hemoglobin 25.8 pg (27.0-31.0); Mean Corpuscular Volume 84.1 fL (78.0-98.0); Mean Platelet Volume 6.2 fL (7.4-10.4); Platelet Count 799 thou/uL (130-400); RBC Distribution Width 13.6 % (11.5-14.5); Red Blood Cell (RBC) Count 3.79 mill/uL (4.20-5.40); White Blood Cell (WBC) Count 9.1 thou/uL (4.8-10.8)
[2020-10-08] MEDS: methylPREDNISolone Sod Succ 40 MG VIAL IVP SCH ×4 (04:52→22:12)
[2020-10-08 05:01] LABS: Anion Gap 16 mmol/L (10-20); BUN (Urea Nitrogen) 6 mg/dL (9.8-20.1); Calc. Creatinine Clearance 78 mL/min (70-130); Calcium 9.9 mg/dL (7.8-10.44); Carbon Dioxide 24 mmol/L (23-31); Chloride 106 mmol/L (98-107); Glucose 102 mg/dL (83-110); Magnesium 2.2 mg/dL (1.6-2.6); Phosphorus 4.7 mg/dL (2.3-4.7); Potassium 3.8 mmol/L (3.5-5.1); Sodium 142 mmol/L (136-145)
[2020-10-08 08:12] LABS: Actual Bicarbonate (HCO3a) 20.2 mEq/L (22-28); Base Excess (BEa) 0.1 mEq/L (-2.0 to +3.0); Calcium, Ionized (arterial) 1.08 mmol/L (1.12-1.30); Carboxyhemoglobin (COHb) 0.3 gm% (0.0-3.0); Hemoglobin (Hb) 11.3 g/dL (12.0-16.0); O2 Tension (PaO2), arterial 80.7 mmHg (> 60.0); Potassium - ABG Lab 3.64 mmol/L (3.70-5.30)
[2020-10-08 08:14] LABS: ALV-art Gradient 391.775 mmHg (0-20); CO2 Tension 21.3 mmHg (35.0-45.0); Peep/CPAP 8.5 cmH2O; Puncture Site LRA
[2020-10-08] MEDS: Famotidine 20 MG TAB PO SCH ×2 (09:22→20:38)
[2020-10-08] MEDS: Aspirin Chewable 81 MG TAB PO SCH (09:22)
[2020-10-08] MEDS: Famotidine/PF 20 mg/2ml Vial SLOW IVP SCH ×2 (09:22→20:38)
[2020-10-08] MEDS: Clopidogrel Bisulfate 75 MG TAB PO SCH (09:25)
[2020-10-08] MEDS ORDERED: Clopidogrel Bisulfate 75 MG TAB PO SCH (09:30)
[2020-10-08] MEDS: cefTRIAXone\\ROCEPHIN 1 GM in Sodium Chloride 0.9% 100 ML IVPB SCH (12:16)
[2020-10-08] MEDS ORDERED: Fentanyl CADD 100 ML ONE (13:09)
[2020-10-08] MEDS: Azithromycin 500 MG in Sodium Chloride 0.9% 250 ML 250 ML IVPB SCH (15:43)
[2020-10-08] MEDS ORDERED: Furosemide 20 MG/2 ML VIAL SLOW IVP SCH (20:00)
[2020-10-08] MEDS: Atorvastatin Calcium 40 MG TAB PO SCH (20:37)
[2020-10-09] MEDS ORDERED: Fentanyl CADD 100 ML ONE ×2 (03:19→15:28)
[2020-10-09] MEDS: Fentanyl CADD 100 ML IV SCH (03:23)
[2020-10-09 04:38] LABS: #Lymphocytes 0.7 thou/uL (1.20-3.40); #Monocytes 0.7 thou/uL (0.11-0.59); #Neutrophils 10.9 thou/uL (1.40-6.50); %Eosinophils 0.1 % (0.0-10.0); %Lymphocytes 5.6 % (21.0-51.0); %Monocytes 5.4 % (0.0-10.0); %Neutrophils 88.8 % (42.0-75.0); Hemoglobin 10.6 g/dL (12.0-16.0); Mean Corpuscular HGB CONC 31.9 g/dL (32.0-36.0); Mean Corpuscular Hemoglobin 29.8 pg (27.0-31.0); Mean Corpuscular Volume 93.3 fL (78.0-98.0); Platelet Count 229 thou/uL (130-400); RBC Distribution Width 12.6 % (11.5-14.5); Red Blood Cell (RBC) Count 3.54 mill/uL (4.20-5.40); White Blood Cell (WBC) Count 12.3 thou/uL (4.8-10.8)
[2020-10-09] MEDS: methylPREDNISolone Sod Succ 40 MG VIAL IVP SCH ×4 (04:42→22:36)
[2020-10-09] MEDS: Lorazepam 2 MG/ML VIAL SLOW IVP PRN (04:42)
[2020-10-09 04:55] LABS: Anion Gap 15 mmol/L (10-20); BUN (Urea Nitrogen) 49 mg/dL (9.8-20.1); Calc. Creatinine Clearance 39 mL/min (70-130); Calcium 8.5 mg/dL (7.8-10.44); Carbon Dioxide 23 mmol/L (23-31); Chloride 108 mmol/L (98-107); Glucose 152 mg/dL (83-110); Magnesium 2.3 mg/dL (1.6-2.6); Potassium 3.7 mmol/L (3.5-5.1); Sodium 142 mmol/L (136-145)
[2020-10-09 07:37] LABS: Actual Bicarbonate (HCO3a) 22.4 mEq/L (22-28); Base Excess (BEa) -0.1 mEq/L (-2.0 to +3.0); CO2 Tension 29.2 mmHg (35.0-45.0); Calcium, Ionized (arterial) 1.13 mmol/L (1.12-1.30); Carboxyhemoglobin (COHb) 0.3 gm% (0.0-3.0); Hemoglobin (Hb) 10.7 g/dL (12.0-16.0); Potassium - ABG Lab 3.75 mmol/L (3.70-5.30)
[2020-10-09 07:40] LABS: O2 Tension (PaO2), arterial 54.3 mmHg (> 60.0)
[2020-10-09 07:41] LABS: Peep/CPAP 8.5 cmH2O; Puncture Site LRA
[2020-10-09] MEDS: Famotidine 20 MG TAB PO SCH ×2 (09:29→20:09)
[2020-10-09] MEDS: Famotidine/PF 20 mg/2ml Vial SLOW IVP SCH ×2 (09:29→20:10)
[2020-10-09] MEDS: Aspirin Chewable 81 MG TAB PO SCH (09:30)
[2020-10-09] MEDS: Clopidogrel Bisulfate 75 MG TAB PO SCH (09:30)
[2020-10-09] MEDS: cefTRIAXone\\ROCEPHIN 1 GM in Sodium Chloride 0.9% 100 ML IVPB SCH (11:25)
[2020-10-09] MEDS: Metoclopramide HCl 10 MG/2 ML VIAL IVP SCH ×2 (11:25→17:51)
[2020-10-09] MEDS ORDERED: Polyethylene Glycol 3350 17 GM Packet PER TUBE SCH (12:15)
[2020-10-09] MEDS: Sodium Chloride 0.9% 1,000 ML IV SCH (12:17)
[2020-10-09] MEDS: Piperacillin/Tazobactam 3.375 GM in Sodium Chloride 0.9% 100 ML IVPB SCH ×2 (12:17→17:51)
[2020-10-09] MEDS: VANCOMYCIN 1.25 GM/250 ML BAG 1.25 GM in Premix Bag 1 BAG IVPB SCH (12:58)
[2020-10-09] MEDS ORDERED: Furosemide 40 MG/4 ML VIAL IVP SCH (17:17)
[2020-10-09] MEDS: Atorvastatin Calcium 40 MG TAB PO SCH (20:09)
[2020-10-10] MEDS: Metoclopramide HCl 10 MG/2 ML VIAL IVP SCH ×4 (00:04→17:33)
[2020-10-10] MEDS: Piperacillin/Tazobactam 3.375 GM in Sodium Chloride 0.9% 100 ML IVPB SCH ×4 (00:04→17:33)
[2020-10-10] MEDS ORDERED: Fentanyl CADD 100 ML ONE ×2 (03:54→17:28)
[2020-10-10] MEDS: Fentanyl CADD 100 ML IV SCH (04:03)
[2020-10-10] MEDS: methylPREDNISolone Sod Succ 40 MG VIAL IVP SCH (04:03)
[2020-10-10 04:35] LABS: Hemoglobin 10.6 g/dL (12.0-16.0); Mean Corpuscular HGB CONC 32.7 g/dL (32.0-36.0); Mean Corpuscular Hemoglobin 31.3 pg (27.0-31.0); Mean Corpuscular Volume 95.7 fL (78.0-98.0); Mean Platelet Volume 8.1 fL (7.4-10.4); Platelet Count 222 thou/uL (130-400); RBC Distribution Width 12.4 % (11.5-14.5); Red Blood Cell (RBC) Count 3.38 mill/uL (4.20-5.40); White Blood Cell (WBC) Count 12.5 thou/uL (4.8-10.8)
[2020-10-10] MEDS: Sodium Chloride 0.9% 1,000 ML IV SCH (04:41)
[2020-10-10 04:58] LABS: Anion Gap 15 mmol/L (10-20); BUN (Urea Nitrogen) 52 mg/dL (9.8-20.1); Calc. Creatinine Clearance 40 mL/min (70-130); Calcium 8.3 mg/dL (7.8-10.44); Carbon Dioxide 26 mmol/L (23-31); Chloride 108 mmol/L (98-107); Glucose 203 mg/dL (83-110); Magnesium 2.2 mg/dL (1.6-2.6); Sodium 145 mmol/L (136-145)
[2020-10-10 07:15] LABS: Phosphorus 4.2 mg/dL (2.3-4.7)
[2020-10-10] MEDS ORDERED: Electrolyte Replacement Protocol 1 EACH FS ONE (08:08)
[2020-10-10 08:09] LABS: Actual Bicarbonate (HCO3a) 25.1 mEq/L (22-28); Base Excess (BEa) 0.4 mEq/L (-2.0 to +3.0); CO2 Tension 40.7 mmHg (35.0-45.0); Calcium, Ionized (arterial) 1.13 mmol/L (1.12-1.30); Carboxyhemoglobin (COHb) 0.3 gm% (0.0-3.0); Hemoglobin (Hb) 11.1 g/dL (12.0-16.0); O2 Tension (PaO2), arterial 81.4 mmHg (> 60.0); Potassium - ABG Lab 4.12 mmol/L (3.70-5.30); pH, Arterial 7.41 (7.35-7.45)
[2020-10-10 08:10] LABS: ALV-art Gradient 295.525 mmHg (0-20); Puncture Site LRA
[2020-10-10] MEDS ORDERED: Electrolyte Replacement Protocol FS PRN (08:30)
[2020-10-10] MEDS: Polyethylene Glycol 3350 17 GM Packet PER TUBE SCH (09:12)
[2020-10-10] MEDS: Aspirin Chewable 81 MG TAB PO SCH (09:12)
[2020-10-10] MEDS: Lorazepam 2 MG/ML VIAL SLOW IVP PRN (09:12)
[2020-10-10] MEDS: Clopidogrel Bisulfate 75 MG TAB PO SCH (09:12)
[2020-10-10] MEDS: Famotidine/PF 20 mg/2ml Vial SLOW IVP SCH (09:12)
[2020-10-10] MEDS: VANCOMYCIN 1.25 GM/250 ML BAG 1.25 GM in Premix Bag 1 BAG IVPB SCH (12:57)
[2020-10-10] MEDS: Atorvastatin Calcium 40 MG TAB PO SCH (20:50)
[2020-10-10] MEDS ORDERED: Carvedilol 3.125 MG TAB PO SCH (21:00)
[2020-10-11] MEDS: Metoclopramide HCl 10 MG/2 ML VIAL IVP SCH ×5 (00:38→23:59)
[2020-10-11] MEDS: Piperacillin/Tazobactam 3.375 GM in Sodium Chloride 0.9% 100 ML IVPB SCH ×2 (00:38→05:13)
[2020-10-11 04:43] LABS: Hemoglobin 10.2 g/dL (12.0-16.0); Mean Corpuscular HGB CONC 32.9 g/dL (32.0-36.0); Mean Corpuscular Volume 94.4 fL (78.0-98.0); Mean Platelet Volume 8.1 fL (7.4-10.4); Platelet Count 204 thou/uL (130-400); RBC Distribution Width 12.4 % (11.5-14.5); Red Blood Cell (RBC) Count 3.28 mill/uL (4.20-5.40); White Blood Cell (WBC) Count 14.1 thou/uL (4.8-10.8)
[2020-10-11 05:02] LABS: Anion Gap 11 mmol/L (10-20); BUN (Urea Nitrogen) 50 mg/dL (9.8-20.1); Calc. Creatinine Clearance 43 mL/min (70-130); Carbon Dioxide 28 mmol/L (23-31); Chloride 110 mmol/L (98-107); Glucose 191 mg/dL (83-110); Sodium 145 mmol/L (136-145)
[2020-10-11] MEDS ORDERED: Fentanyl CADD 100 ML ONE (07:50)
[2020-10-11 07:53] LABS: Actual Bicarbonate (HCO3a) 26.9 mEq/L (22-28); Base Excess (BEa) 1.3 mEq/L (-2.0 to +3.0); CO2 Tension 46.5 mmHg (35.0-45.0); Calcium, Ionized (arterial) 1.17 mmol/L (1.12-1.30); Carboxyhemoglobin (COHb) 0.2 gm% (0.0-3.0); Hemoglobin (Hb) 11.7 g/dL (12.0-16.0); O2 Tension (PaO2), arterial 68.4 mmHg (> 60.0); Potassium - ABG Lab 4.05 mmol/L (3.70-5.30); pH, Arterial 7.38 (7.35-7.45)
[2020-10-11] MEDS: Fentanyl CADD 100 ML IV SCH (07:53)
[2020-10-11 07:56] LABS: ALV-art Gradient 229.975 mmHg (0-20); Puncture Site LRA
[2020-10-11] MEDS: Aspirin Chewable 81 MG TAB PO SCH (08:38)
[2020-10-11] MEDS: Famotidine/PF 20 mg/2ml Vial SLOW IVP SCH (08:38)
[2020-10-11] MEDS: Polyethylene Glycol 3350 17 GM Packet PER TUBE SCH (08:39)
[2020-10-11] MEDS: Clopidogrel Bisulfate 75 MG TAB PO SCH (08:39)
[2020-10-11] MEDS: Cefepime 1 GM in Sodium Chloride 0.9% 100 ML IVPB SCH ×2 (08:39→21:13)
[2020-10-11] MEDS: Carvedilol 3.125 MG TAB PO SCH ×3 (08:50→21:14)
[2020-10-11] MEDS ORDERED: Furosemide 40 MG/4 ML VIAL SLOW IVP SCH (09:00)
[2020-10-11 12:40] LABS: Vancomycin, Trough 9.8 ug/mL
[2020-10-11] MEDS: VANCOMYCIN 1.75 GM/350 ML BAG 1.75 GM in Premix Bag 1 BAG IVPB SCH (13:34)
[2020-10-11] MEDS: Atorvastatin Calcium 40 MG TAB PO SCH (21:14)
[2020-10-12] MEDS ORDERED: Fentanyl CADD 100 ML ONE ×2 (04:27→22:30)
[2020-10-12 04:50] LABS: Hemoglobin 11.5 g/dL (12.0-16.0); Mean Corpuscular HGB CONC 31.1 g/dL (32.0-36.0); Mean Corpuscular Hemoglobin 29.4 pg (27.0-31.0); Mean Corpuscular Volume 94.4 fL (78.0-98.0); Platelet Count 244 thou/uL (130-400); RBC Distribution Width 12.6 % (11.5-14.5); Red Blood Cell (RBC) Count 3.91 mill/uL (4.20-5.40); White Blood Cell (WBC) Count 18.9 thou/uL (4.8-10.8)
[2020-10-12 05:10] LABS: Anion Gap 12 mmol/L (10-20); BUN (Urea Nitrogen) 38 mg/dL (9.8-20.1); Calc. Creatinine Clearance 51 mL/min (70-130); Calcium 8.8 mg/dL (7.8-10.44); Carbon Dioxide 32 mmol/L (23-31); Chloride 103 mmol/L (98-107); Glucose 211 mg/dL (83-110); Potassium 4.1 mmol/L (3.5-5.1); Sodium 143 mmol/L (136-145)
[2020-10-12] MEDS: Metoclopramide HCl 10 MG/2 ML VIAL IVP SCH ×3 (05:17→18:24)
[2020-10-12 07:17] LABS: Actual Bicarbonate (HCO3a) 29.3 mEq/L (22-28); Base Excess (BEa) 4.4 mEq/L (-2.0 to +3.0); Calcium, Ionized (arterial) 1.16 mmol/L (1.12-1.30); Carboxyhemoglobin (COHb) 0.5 gm% (0.0-3.0); Hemoglobin (Hb) 11.9 g/dL (12.0-16.0); Potassium - ABG Lab 4.18 mmol/L (3.70-5.30); pH, Arterial 7.43 (7.35-7.45)
[2020-10-12 07:23] LABS: Puncture Site RBA
[2020-10-12] MEDS: Aspirin Chewable 81 MG TAB PO SCH (09:03)
[2020-10-12] MEDS: Clopidogrel Bisulfate 75 MG TAB PO SCH (09:03)
[2020-10-12] MEDS: Polyethylene Glycol 3350 17 GM Packet PER TUBE SCH (09:03)
[2020-10-12] MEDS: Carvedilol 3.125 MG TAB PO SCH ×3 (09:03→20:58)
[2020-10-12] MEDS: Famotidine/PF 20 mg/2ml Vial SLOW IVP SCH (09:03)
[2020-10-12] MEDS: Cefepime 1 GM in Sodium Chloride 0.9% 100 ML IVPB SCH ×2 (09:04→20:58)
[2020-10-12] MEDS ORDERED: Magnesium 2 GM/50 ML 2 GM in Premix Bag 1 BAG IVPB PRN (11:20)
[2020-10-12] MEDS ORDERED: Potassium Phosphate 15 MMOL in Sodium Chloride 0.9% 250 ML 250 ML IVPB PRN (11:21)
[2020-10-12 11:45] LABS: Magnesium 1.9 mg/dL (1.6-2.6); Phosphorus 3.8 mg/dL (2.3-4.7)
[2020-10-12] MEDS: VANCOMYCIN 1.75 GM/350 ML BAG 1.75 GM in Premix Bag 1 BAG IVPB SCH (13:32)
[2020-10-12] MEDS ORDERED: Amiodarone 150 MG in Dextrose 5% in Water 100 ML IVPB SCH (18:30)
[2020-10-12] MEDS: Acetaminophen 325 MG TAB PO PRN (20:57)
[2020-10-12] MEDS: Atorvastatin Calcium 40 MG TAB PO SCH (20:58)
[2020-10-12] MEDS: Fentanyl CADD 100 ML IV SCH (22:35)
[2020-10-12] MEDS: Lorazepam 2 MG/ML VIAL SLOW IVP PRN (23:00)
[2020-10-12] MEDS ORDERED: Sodium Chloride 0.9% 250 ML IV PRN (23:44)
[2020-10-12] MEDS ORDERED: Sodium Chloride 0.9% 250 ML IV SCH (23:45)
[2020-10-13 05:21] LABS: Hemoglobin 10.8 g/dL (12.0-16.0); Mean Corpuscular HGB CONC 31.9 g/dL (32.0-36.0); Mean Corpuscular Hemoglobin 30.2 pg (27.0-31.0); Mean Corpuscular Volume 94.8 fL (78.0-98.0); Mean Platelet Volume 8.8 fL (7.4-10.4); Platelet Count 222 thou/uL (130-400); RBC Distribution Width 12.6 % (11.5-14.5); Red Blood Cell (RBC) Count 3.58 mill/uL (4.20-5.40); White Blood Cell (WBC) Count 18.3 thou/uL (4.8-10.8)
[2020-10-13 05:42] LABS: Anion Gap 10 mmol/L (10-20); BUN (Urea Nitrogen) 44 mg/dL (9.8-20.1); Calc. Creatinine Clearance 53 mL/min (70-130); Calcium 8.4 mg/dL (7.8-10.44); Carbon Dioxide 32 mmol/L (23-31); Chloride 103 mmol/L (98-107); Glucose 218 mg/dL (83-110); Magnesium 2.4 mg/dL (1.6-2.6); Potassium 4.4 mmol/L (3.5-5.1); Sodium 141 mmol/L (136-145)
[2020-10-13 07:15] LABS: Actual Bicarbonate (HCO3a) 29.8 mEq/L (22-28); Base Excess (BEa) 5.1 mEq/L (-2.0 to +3.0); CO2 Tension 44.7 mmHg (35.0-45.0); Calcium, Ionized (arterial) 1.17 mmol/L (1.12-1.30); Carboxyhemoglobin (COHb) 0.7 gm% (0.0-3.0); Hemoglobin (Hb) 11.2 g/dL (12.0-16.0); O2 Tension (PaO2), arterial 78.1 mmHg (> 60.0); Potassium - ABG Lab 4.28 mmol/L (3.70-5.30); pH, Arterial 7.44 (7.35-7.45)
[2020-10-13 07:16] LABS: Puncture Site RBA
[2020-10-13 07:17] LABS: ALV-art Gradient 94.185 mmHg (0-20)
[2020-10-13] MEDS: Carvedilol 3.125 MG TAB PO SCH ×3 (08:49→20:20)
[2020-10-13] MEDS: Aspirin Chewable 81 MG TAB PO SCH (08:49)
[2020-10-13] MEDS: Polyethylene Glycol 3350 17 GM Packet PER TUBE SCH (09:15)
[2020-10-13] MEDS: Cefepime 1 GM in Sodium Chloride 0.9% 100 ML IVPB SCH ×2 (09:15→20:20)
[2020-10-13] MEDS: Famotidine/PF 20 mg/2ml Vial SLOW IVP SCH (09:15)
[2020-10-13] MEDS: Clopidogrel Bisulfate 75 MG TAB PO SCH (09:15)
[2020-10-13 12:37] LABS: Vancomycin, Trough 18.2 ug/mL
[2020-10-13] MEDS: VANCOMYCIN 1.75 GM/350 ML BAG 1.75 GM in Premix Bag 1 BAG IVPB SCH (13:40)
[2020-10-13] MEDS: Amiodarone 450 MG in Dextrose 5% in Water 250 ML IVPB SCH (17:27)
[2020-10-13] MEDS: Enoxaparin Sodium 80 MG/0.8 ML SYRINGE SC SCH (20:20)
[2020-10-13] MEDS: Atorvastatin Calcium 40 MG TAB PO SCH (20:20)
[2020-10-14 06:09] LABS: Anion Gap 12 mmol/L (10-20); BUN (Urea Nitrogen) 41 mg/dL (9.8-20.1); Calc. Creatinine Clearance 60 mL/min (70-130); Calcium 8.5 mg/dL (7.8-10.44); Carbon Dioxide 30 mmol/L (23-31); Chloride 103 mmol/L (98-107); Glucose 205 mg/dL (83-110); Magnesium 1.9 mg/dL (1.6-2.6); Potassium 4.1 mmol/L (3.5-5.1); Sodium 141 mmol/L (136-145)
[2020-10-14 06:12] LABS: Phosphorus 3.1 mg/dL (2.3-4.7)
[2020-10-14 07:10] VITALS: BP 111/61
[2020-10-14 07:16] LABS: Actual Bicarbonate (HCO3a) 28.5 mEq/L (22-28); Base Excess (BEa) 4.7 mEq/L (-2.0 to +3.0); CO2 Tension 39.3 mmHg (35.0-45.0); Calcium, Ionized (arterial) 1.17 mmol/L (1.12-1.30); Carboxyhemoglobin (COHb) 0.1 gm% (0.0-3.0); Hemoglobin (Hb) 10.3 g/dL (12.0-16.0); O2 Tension (PaO2), arterial 70.9 mmHg (> 60.0); Potassium - ABG Lab 3.92 mmol/L (3.70-5.30); pH, Arterial 7.48 (7.35-7.45)
[2020-10-14 07:19] LABS: ALV-art Gradient 108.135 mmHg (0-20); Puncture Site LRA
[2020-10-14] MEDS: Cefepime 1 GM in Sodium Chloride 0.9% 100 ML IVPB SCH ×2 (09:20→21:30)
[2020-10-14] MEDS: Clopidogrel Bisulfate 75 MG TAB PO SCH (09:20)
[2020-10-14] MEDS: Carvedilol 3.125 MG TAB PO SCH ×3 (09:20→21:31)
[2020-10-14] MEDS: Aspirin Chewable 81 MG TAB PO SCH (09:21)
[2020-10-14] MEDS: Enoxaparin Sodium 80 MG/0.8 ML SYRINGE SC SCH (09:21)
[2020-10-14] MEDS: Amiodarone 450 MG in Dextrose 5% in Water 250 ML IVPB SCH (09:21)
[2020-10-14] MEDS: Famotidine/PF 20 mg/2ml Vial SLOW IVP SCH ×2 (09:21→21:31)
[2020-10-14] MEDS: Polyethylene Glycol 3350 17 GM Packet PER TUBE SCH (09:22)
[2020-10-14] MEDS ORDERED: Phenylephrine 0.25% Nasal Spray 15 ML BOT EA NARE PRN (10:42)
[2020-10-14] MEDS: VANCOMYCIN 1.75 GM/350 ML BAG 1.75 GM in Premix Bag 1 BAG IVPB SCH (14:06)
[2020-10-14] MEDS ORDERED: ALPRAZolam 0.25 MG TAB PO SCH (19:30)
[2020-10-14] MEDS ORDERED: Lorazepam 2 MG/ML VIAL SLOW IVP SCH (19:45)
[2020-10-14 20:27] LABS: Actual Bicarbonate (HCO3a) 23.7 mEq/L (22-28); Base Excess (BEa) -1.3 mEq/L (-2.0 to +3.0); CO2 Tension 40.7 mmHg (35.0-45.0); Carboxyhemoglobin (COHb) 0.6 gm% (0.0-3.0); Hemoglobin (Hb) 11.7 g/dL (12.0-16.0); O2 Tension (PaO2), arterial 61.7 mmHg (> 60.0); Potassium - ABG Lab 4.24 mmol/L (3.70-5.30); Puncture Site RRA; pH, Arterial 7.38 (7.35-7.45)
[2020-10-14 20:28] LABS: ALV-art Gradient 521.995 mmHg (0-20)
[2020-10-14] MEDS ORDERED: Furosemide 40 MG/4 ML VIAL SLOW IVP SCH (21:00)
[2020-10-14] MEDS: Enoxaparin Sodium 40 MG/0.4 ML SYRINGE SC SCH (21:31)
[2020-10-14] MEDS: Atorvastatin Calcium 40 MG TAB PO SCH (21:31)
[2020-10-15] MEDS: Amiodarone 450 MG in Dextrose 5% in Water 250 ML IVPB SCH (00:14)
[2020-10-15 03:56] LABS: Anion Gap 14 mmol/L (10-20); BUN (Urea Nitrogen) 36 mg/dL (9.8-20.1); Calc. Creatinine Clearance 62 mL/min (70-130); Calcium 9.3 mg/dL (7.8-10.44); Carbon Dioxide 28 mmol/L (23-31); Chloride 103 mmol/L (98-107); Glucose 142 mg/dL (83-110); Magnesium 1.8 mg/dL (1.6-2.6); Potassium 4.2 mmol/L (3.5-5.1); Sodium 141 mmol/L (136-145)
[2020-10-15] MEDS: Enoxaparin Sodium 40 MG/0.4 ML SYRINGE SC SCH ×2 (08:47→19:47)
[2020-10-15] MEDS: Famotidine/PF 20 mg/2ml Vial SLOW IVP SCH ×2 (08:47→19:46)
[2020-10-15] MEDS: Cefepime 1 GM in Sodium Chloride 0.9% 100 ML IVPB SCH ×2 (08:48→19:47)
[2020-10-15] MEDS: Carvedilol 3.125 MG TAB PO SCH ×3 (08:48→19:54)
[2020-10-15] MEDS: Aspirin Chewable 81 MG TAB PO SCH (08:48)
[2020-10-15] MEDS: Clopidogrel Bisulfate 75 MG TAB PO SCH (08:48)
[2020-10-15] MEDS: Polyethylene Glycol 3350 17 GM Packet PER TUBE SCH (08:53)
[2020-10-15] MEDS: Lorazepam 2 MG/ML VIAL SLOW IVP PRN ×2 (09:12→15:06)
[2020-10-15] MEDS: Venlafaxine HCl XR 75 MG CAP PO SCH (09:43)
[2020-10-15] MEDS: Ondansetron PF 4 MG/2 ML Vial IVP PRN ×2 (12:04→18:37)
[2020-10-15 12:42] LABS: Vancomycin, Trough 20.1 ug/mL
[2020-10-15] MEDS: Atorvastatin Calcium 40 MG TAB PO SCH (19:47)
[2020-10-16 04:17] LABS: Anion Gap 13 mmol/L (10-20); BUN (Urea Nitrogen) 41 mg/dL (9.8-20.1); Calc. Creatinine Clearance 65 mL/min (70-130); Calcium 8.5 mg/dL (7.8-10.44); Carbon Dioxide 26 mmol/L (23-31); Chloride 104 mmol/L (98-107); Glucose 139 mg/dL (83-110); Potassium 4.2 mmol/L (3.5-5.1); Sodium 139 mmol/L (136-145)
[2020-10-16] MEDS: Cefepime 1 GM in Sodium Chloride 0.9% 100 ML IVPB SCH (09:20)
[2020-10-16] MEDS: Enoxaparin Sodium 40 MG/0.4 ML SYRINGE SC SCH (09:21)
[2020-10-16] MEDS: Famotidine/PF 20 mg/2ml Vial SLOW IVP SCH (09:21)
[2020-10-16] MEDS: Polyethylene Glycol 3350 17 GM Packet PER TUBE SCH (09:21)
[2020-10-16] MEDS: Venlafaxine HCl XR 75 MG CAP PO SCH (09:34)
[2020-10-16] MEDS: Aspirin Chewable 81 MG TAB PO SCH (09:34)
[2020-10-16] MEDS: Carvedilol 3.125 MG TAB PO SCH ×2 (09:34→16:45)
[2020-10-16] MEDS: Clopidogrel Bisulfate 75 MG TAB PO SCH (09:34)
[2020-10-16] MEDS: Lorazepam 2 MG/ML VIAL SLOW IVP PRN (14:10)
[2020-10-16 14:55] VITALS: BMI 28.7
[2020-10-16 17:11] VITALS: TEMP 97.2
== END 2020-10-16 19:35 | disposition hospice, inpatient (51) | DRG 246 ==
LOC: ERS 10:00 → ERHOLD 12:04 → CCU 19:24
PROVIDERS: ADMIT Family Medicine; ATTEND Family Medicine
PROC: 027034Z Dilation of Coronary Artery, One Artery with Drug-eluting Intraluminal Device, Percutaneous Approach (ICD-10-PCS; principal; 2020-10-05)
PROC: 4A023N7 Measurement of Cardiac Sampling and Pressure, Left Heart, Percutaneous Approach (ICD-10-PCS; 2020-10-05)
PROC: B2111ZZ Fluoroscopy of Multiple Coronary Arteries using Low Osmolar Contrast (ICD-10-PCS; 2020-10-05)
PROC: B2151ZZ Fluoroscopy of Left Heart using Low Osmolar Contrast (ICD-10-PCS; 2020-10-05)
PROC: 5A09357 Assistance with Respiratory Ventilation, Less than 24 Consecutive Hours, Continuous Positive Airway Pressure (ICD-10-PCS; 2020-10-05)
PROC: 0BH17EZ Insertion of Endotracheal Airway into Trachea, Via Natural or Artificial Opening (ICD-10-PCS; 2020-10-05)
PROC: 5A1945Z Respiratory Ventilation, 24-96 Consecutive Hours (ICD-10-PCS; 2020-10-05)
PROC: 0D9670Z Drainage of Stomach with Drainage Device, Via Natural or Artificial Opening (ICD-10-PCS; 2020-10-05)
PROC: 02HV33Z Insertion of Infusion Device into Superior Vena Cava, Percutaneous Approach (ICD-10-PCS; 2020-10-06)
PROC: B548ZZA Ultrasonography of Superior Vena Cava, Guidance (ICD-10-PCS; 2020-10-06)
PROC: 3E043XZ Introduction of Vasopressor into Central Vein, Percutaneous Approach (ICD-10-PCS; 2020-10-06)
PROC: 5A1955Z Respiratory Ventilation, Greater than 96 Consecutive Hours (ICD-10-PCS; 2020-10-07)
PROC: 0BH18EZ Insertion of Endotracheal Airway into Trachea, Via Natural or Artificial Opening Endoscopic (ICD-10-PCS; 2020-10-07)
PROC: 5A09357 Assistance with Respiratory Ventilation, Less than 24 Consecutive Hours, Continuous Positive Airway Pressure (ICD-10-PCS; 2020-10-07)
PROC: 5A0945A Assistance with Respiratory Ventilation, 24-96 Consecutive Hours, High Flow/Velocity Cannula (ICD-10-PCS; 2020-10-14)
DX: I21.4 Non-ST elevation (NSTEMI) myocardial infarction (principal); J96.01 Acute respiratory failure with hypoxia; J96.02 Acute respiratory failure with hypercapnia; J15.9 Unspecified bacterial pneumonia; I50.23 Acute on chronic systolic (congestive) heart failure; N17.9 Acute kidney failure, unspecified; I13.0 Hypertensive heart and chronic kidney disease with heart failure and stage 1 through stage 4 chronic kidney disease, or unspecified chronic kidney disease; I47.1 Supraventricular tachycardia; J44.0 Chronic obstructive pulmonary disease with (acute) lower respiratory infection; Z20.822 Contact with and (suspected) exposure to COVID-19; Z51.5 Encounter for palliative care; Z66 Do not resuscitate; I48.0 Paroxysmal atrial fibrillation; I25.5 Ischemic cardiomyopathy; R13.10 Dysphagia, unspecified; E78.5 Hyperlipidemia, unspecified; I25.10 Atherosclerotic heart disease of native coronary artery without angina pectoris; F41.9 Anxiety disorder, unspecified; F32.9 Major depressive disorder, single episode, unspecified; E78.00 Pure hypercholesterolemia, unspecified; D63.1 Anemia in chronic kidney disease; N18.9 Chronic kidney disease, unspecified; D72.829 Elevated white blood cell count, unspecified; I08.1 Rheumatic disorders of both mitral and tricuspid valves; K59.00 Constipation, unspecified; E87.6 Hypokalemia; Z91.09 Other allergy status, other than to drugs and biological substances; Z88.1 Allergy status to other antibiotic agents; Z91.030 Bee allergy status; Z79.899 Other long term (current) drug therapy; Z79.82 Long term (current) use of aspirin; Z90.710 Acquired absence of both cervix and uterus; Z95.1 Presence of aortocoronary bypass graft; Z86.16 Personal history of COVID-19; Z95.5 Presence of coronary angioplasty implant and graft; Z78.1 Physical restraint status; Z87.19 Personal history of other diseases of the digestive system; Z87.891 Personal history of nicotine dependence
CPT/HCPCS: 0240U; 31500; 36415; 36600; 51702; 71045; 71275; 74018; 76942; 80048; 80053; 80202; 82553; 82805; 83735; 83880; 84100; 84484; 85025; 85027; 85379; 92941; 93005; 93010; 93306; 93458; 94002; 94003; 94640; 94660; 96365; 96367; 96372; 96375; 99292; C9606; J0153; J0282; J0456; J0692; J0696; J1160; J1265; J1644; J1650; J1940; J2001; J2060; J2250; J2405; J2543; J2765; J2920; J2930; J3010; J3370; J3475; J3480; J3490; J7030; J7050; J7070; J7611; J7620; Q9967; S0028

== ENCOUNTER 2020-10-16 20:19 | Inpatient (IN) | payer OTHER ==
[2020-10-16 20:36] VITALS: BMI 28.7
[2020-10-23 08:18] VITALS: BP 122/77; TEMP 97.2
== END 2020-10-23 15:18 | disposition expired | DRG 951 ==
LOC: CCU 20:19 → ONC 22:59
PROVIDERS: ADMIT Family Medicine; ATTEND Family Medicine
DX: Z51.5 Encounter for palliative care (principal); J96.01 Acute respiratory failure with hypoxia; I21.4 Non-ST elevation (NSTEMI) myocardial infarction; J15.6 Pneumonia due to other Gram-negative bacteria; N17.9 Acute kidney failure, unspecified; I48.20 Chronic atrial fibrillation, unspecified; Z66 Do not resuscitate; Z20.822 Contact with and (suspected) exposure to COVID-19; E78.5 Hyperlipidemia, unspecified; I10 Essential (primary) hypertension; I25.10 Atherosclerotic heart disease of native coronary artery without angina pectoris; F41.9 Anxiety disorder, unspecified; I25.5 Ischemic cardiomyopathy; R13.10 Dysphagia, unspecified; Z90.710 Acquired absence of both cervix and uterus; Z95.1 Presence of aortocoronary bypass graft; Z88.8 Allergy status to other drugs, medicaments and biological substances; Z88.1 Allergy status to other antibiotic agents
CPT/HCPCS: J2060; J2270